=== PATIENT | female | born 1970 | race Caucasian/White ===

== ENCOUNTER 2020-03-29 08:38 | Inpatient (IN) | payer OTHER, SELFPAY ==
--- NOTE | 2020-03-23 08:54 | EKG12_ITS ---
Test Reason : PREOP Blood Pressure : / mmHG Vent. Rate : 054 BPM Atrial Rate : 054 BPM P-R Int : 142 ms QRS Dur : 082 ms QT Int : 458 ms P-R-T Axes : 041 026 022 degrees QTc Int : 434 ms Sinus bradycardia Otherwise normal ECG Confirmed by STEPH CORBETT, GIRMA ([id number]), newspaper editor managing CASSY JOSEPH ([id number]) on 03/24/2020 12:40:24 PM Referred By: EMELY Confirmed By:GIRMA CHOI MD
[2020-03-24 11:22] LABS: Hematocrit 42.6 % (37-47); Hemoglobin 13.8 g/dL (12.0-15.0); Mean Corp Hgb Conc 32.4 g/dL (32-36); Mean Corpuscular Hgb 29.1 pg (27.0-32.0); Mean Corpuscular Volume 89.9 fL (81-99); Mean Platelet Vol. 10.3 fl (6.2-12.0); Platelet Count 284 K/mm3 (150-450); RBC Distribution Width CV 12.1 % (11.6-14.6); Red Blood Count 4.74 M/mm3 (4.2-5.4); White Blood Count 7.4 K/mm3 (4.4-11.0)
[2020-03-24 11:31] LABS: Partial Thromboplast Time 25.2 Seconds (24.1-36.2)
[2020-03-24 11:55] LABS: ALB/GLOB Ratio 0.9 RATIO (0.9-2.4); AST(SGOT) 17 U/L (15-37); Alanine Aminotransfer ALT/SGPT 23 U/L (13-56); Albumin, Serum 3.5 g/dL (3.2-5.0); Alkaline Phosphatase 79 U/L (45-117); Anion Gap 6 (5-15); BUN 15 mg/dL (7-18); BUN/Creat Ratio 14.9 RATIO (10-20); Calcium,Total 9.3 mg/dL (8.5-10.1); Chloride 106 mmol/L (98-107); Creatinine, Serum 1.01 mg/dL (0.55-1.02); EST Glomerular Filtration Rate 62 mL/min (>60); Est Glom Filt Rate - Afr Amer 75 mL/min (>60); Globulin 3.8 g/dL (2.2-4.2); Glucose 90 mg/dL (74-106); Potassium 3.9 mmol/L (3.5-5.1); Protein, Total 7.3 g/dL (6.4-8.2); Sodium Level 136 mmol/L (136-145)
--- NOTE | 2020-03-28 19:16 | HP.PCM_ITS ---
History and Physical Date of Admission: 03/29/20 Surgical History and Physical Licha Kelley, a 50 year old female 2 0 0 0 2, presents for CAMERON/BSO on March 29, 2020 at 10:30. -- Large Pelvic Mass -- Pelvic Mass which began CT Scan & US at [facility]. Licha claims it started gradually and has been present August/2019. It occurs all the time. It is located in the lower abdomen. Licha characterizes the quality pressure. Severity is moderate and not improving; Additional comments are: Referred by Ellyn Uriostegui HEALTH AND PHYSICAL EDUCATION PROFESSOR.; Additional comments are: CT and u/s shows possible fibroids vs ovarian cystic mass 13 cm sized; minimal sxs; thick EM lining.; Additional comments are: uncertain if on right or left.; Additional comments are: CA-125 normal and EMBx benign; u/s shows likely large endometrioma vs simple cystadenoma or cyst. MEDICATIONS HISTORY: Patient is also takin. oxybutynin chloride ER 10 mg tablet,extended release 24 hr, daily 2. JESSICA (28) 3 mg-0.02 mg tablet, One pill by mouth once a day ALLERGIES: No Known Drug Allergies Infections - Chicken pox Illnesses - none Accidents - None Hospitalizations - Childbirth and see surgery overactive bladder; Review of Systems: GENERAL - Denies fever, or chills SKIN - Denies skin changes EYES - Denies visual changes EARS - Denies difficulty hearing NOSE - Denies nasal congestion or bleeding MOUTH - Denies sore throat or difficulty swallowing NECK - Denies pain or swelling RESPIRATORY - Denies shortness of breath or wheezing CARDIOVASCULAR - Denies palpitations or chest pain GASTROINTESTINAL - Denies nausea, vomiting, diarrhea, constipation GENITOURINARY - Denies dysuria, frequency of urination, incontinence of urine MUSCULOSKELETAL - Denies joint or muscle pain NEUROLOGICAL - Denies localized numbness or weakness PSYCHIATRIC - Denies depression or anxiety ENDOCRINE - Denies heat or cold intolerance, weight loss or gain HEMATO-IMMUNOLOGIC - Denies excessive bleeding with cuts SOCIAL HISTORY: Alcohol Use - drinks occasionally Smoking - denies smoking Diet - balanced Diet Lifestyle - low to moderate stress lifestyle Exercise - minimal Seat Belt Use - always Employer - [employer] Job Description - [employer] Illicit Drug Use - denies use of street drugs Sexual Activity - Residence - lives with Hours Worked - 40 hours per week Spouse-Sig Other Name - AGUSTÍN Spouse-Sig Other Occupation - Banker Children Name(s) - 2 children Control - Control Pills FAMILY HISTORY: MENSTRUAL HISTORY: LMP Known?- Approximate-Month Known Amount/Duration - 5 to 7 days, Regularity - Regular, Frequency - monthly days, LMP - 02/22/20 PAST PREGNANCIES: Total Pregnancies - 2; Full Term Pregnancies - 2; Premature - 0; Abortions, Malika yanna - 0; Abortions, Spontaneous - 0; Ectopics - 0; Multiple Births - 0; Living Children - 2 SURGICAL HISTORY: 1. Jaw- TMJ age 17 PHYSICAL EXAM BP- 120/84 Sitting, Right arm, regular cuff Temp- 98.1 Weight- 211.11147 lbs Height- 69.00 inch BMI:31.31 CONSTITUTIONAL - NAD, well nourished, and well developed ABDOMEN - moveable mass to the umbilicus NEUROLOGICAL - Cranial nerves II-XII grossly intact PSYCHIATRIC - A and O to time, place, person, mood and affect DETAILED PELVIC EXAM External Genital Vagina - non-tender without lesions Urethra/Urethral Meatus - non-tender Bladder - non-tender Vagina - vaginal mustafa are pink and moist without loss of rugae and no evidence of atropy Cervix - without cervical motion tenderness and has normal size and features without evident lesions Uterus - enlarged uterus 15 wks and greater Adnexa - clear without masses or tenderness ASSESSMENT/PLAN: 1. Other Intra-abdominal And Pelvic Swelling, Mass And Lump EMBx and CA-125 bening. U/S with likely endometrioma vs cystadenoma; fibroids present. Given this is likely benign process will proceed with CAMERON/BSO. Discussed RBAs and all questions answered.
[2020-03-29] VITALS (11 sets, daily range): BP systolic 113–128; BP diastolic 62–83; PULSE 55–77; RESP 14–18; TEMP 36.1–36.8; O2SAT 98–100; BMI 31.1; BMI 31.2
--- NOTE | 2020-03-29 | OV_PTH ---
PATIENT: MIGUEL A MEZA LOC: MS3 U#:[id number] AGE/SX: 50/F ROOM: CA315 RE03/29/[address]: Dr. Asa Hawley MD : 1970 BED: 1 DIS: 03/30/2020 SPEC #: [id number] RECD: 03/29/20 10:59 STATUS: GRUPO REHelder #: [id number] NIDHI: 03/29/20 00:[address]: Asa Hawley DEPT: SURGICAL PATHOLOGY RECD BY: Apple Simon ENTERED: 03/29/20 11:41 SP TYPE: OVARY OTHR DR: Noelle Uriostegui PA-C Tissues: A - Left ovary B - Uterus, NOS Procedures: Frozen Section (charge) Frozen Section Add'l ([facility]) Surgery Specimen Level V HEADER OPERATION: Total abdominal hysterectomy, bilateral salpingo-oophorectomy PRE-OP DIAGNOSIS: Intra-abdominal and pelvic swelling, mass TISSUE SUBMITTED: A - Left ovary, frozen section, B - Uterus, cervix, right ovary and bilateral fallopian tubes FROZEN SECTION DIAGNOSIS A. Left ovary oophorectomy: Benign fibrous walled cyst, inflamed. Focal changes suggestive of dermoid cyst. AM:kvng 03/29/20 MICROSCOPIC DIAGNOSIS A. Left ovary and fallopian tube, salpingo-oophorectomy: Mature cystic teratoma (dermoid cyst). Fallopian tube with no pathologic change. B. Uterus, hysterectomy: Cervix - chronic inflammation. Endometrium - inactive endometrium. Myometrium - Focal simple cystic hyperplasia without atypia. Right ovary - corpora albicantia. Right fallopian tube - no pathologic change. AM:kvng 03/31/20 MICROSCOPIC DESCRIPTION Slides are reviewed. GROSS DESCRIPTION A - Received fresh for frozen section consultation labeled with the patient's name is a specimen designated left ovary. The specimen consists of a smooth, glistening cystic ovary measuring 19.5 x 15 x 12 cm and weighing 975 gm. The external surface is inked. No excrescences are identified on the external surface. Sections reveal a large amount of abbasi clear to hazy fluid. The inner cyst wall lining is also smooth and glistening. The cyst wall ranges in thickness from 0.5 to 0.6 cm. No papillary projections or excrescences on the inside of the cyst wall are identified. Coding Quality Coordinator sections of the cyst wall are submitted for froze section consultation in two blocks (cassettes 1 & 2). Attached to the external surface is a fallopian tube segment measuring 3 cm in length and 0.5 cm in average diameter. Additional residential sales representative sections of ovary and fallopian tube are submitted in cassettes 3-5. Note, fallopian tube is represented in cassette 3. B - Received in fixative is one container labeled with the patient's name and designated uterus. The specimen consists of a uterus with attached cervix measuring 9 x 6 x 5 cm and weighing 102 gm. The ectocervix is unremarkable. The cervical os is oval in contour. The endocervical canal measures 3 cm in length and is grossly unremarkable. The triangular endometrial cavity measures 4.5 x 3.5 cm. The endometrium is light abbasi, velvety and glistening and free of mass lesions. The myometrium is distorted with multiple spherical, rubbery nodules representing leiomyomas and ranging in size from 0.5 to 2.5 cm in greatest dimension. The myometrium averages 2 cm in thickness. The masses are subserosal, intramural and submucosal in location. A detached ovary with adjacent fallopian tube is present. The ovary is light abbasi-yellow in color and measures 2 x 2 x 1 cm. Serial sections do not reveal mass lesions. The adjacent fallopian tube measures 5 cm in length and 0.5 cm in average diameter. No tubo-ovarian adhesions are identified. Coding Quality Coordinator sections are submitted as follows: 1 - anterior cervix, 2??posterior cervix, 3 & 4 - anterior uterine wall, 5 & 6 - posterior myometrial wall, 7 - largest myometrial mass, 8 - second largest myometrial mass, 9 - smaller myometrial masses, 10 - ovary and fallopian tube. / AM:kvng 03/30/20 TC:3 CPT: 21531 x2, 64204, 86787
--- NOTE | 2020-03-29 | OV_PTH ---
PATIENT: MIGUEL A MEZA LOC: MS3 U#:[id number] AGE/SX: 50/F ROOM: KY315 RE03/29/[address]: Dr. Asa Hawley MD : 1970 BED: 1 DIS: 03/30/2020 SPEC #: [id number] RECD: 03/29/20 10:59 STATUS: GRUPO REHelder #: [id number] NIDHI: 03/29/20 00:[address]: Asa Hawley DEPT: SURGICAL PATHOLOGY RECD BY: Apple Simon ENTERED: 03/29/20 11:41 SP TYPE: OVARY OTHR DR: Noelle Uriostegui PA-C Tissues: A - Left ovary B - Uterus, NOS Procedures: Frozen Section (charge) Frozen Section Add'l ([facility]) Surgery Specimen Level V HEADER OPERATION: Total abdominal hysterectomy, bilateral salpingo-oophorectomy PRE-OP DIAGNOSIS: Intra-abdominal and pelvic swelling, mass TISSUE SUBMITTED: A - Left ovary, frozen section, B - Uterus, cervix, right ovary and bilateral fallopian tubes FROZEN SECTION DIAGNOSIS A. Left ovary oophorectomy: Benign fibrous walled cyst, inflamed. Focal changes suggestive of dermoid cyst. AM:kvng 03/29/20 MICROSCOPIC DIAGNOSIS A. Left ovary and fallopian tube, salpingo-oophorectomy: Mature cystic teratoma (dermoid cyst). Fallopian tube with no pathologic change. B. Uterus, hysterectomy: Cervix - chronic inflammation. Endometrium - inactive with focal simple cystic hyperplasia without atypia. Myometrium - Leiomyomas. Focal adenomyosis. Right ovary - corpora albicantia. Right fallopian tube - no pathologic change. AM:kvgn 03/31/20 AM:kvng 04/01/20 MICROSCOPIC DESCRIPTION Slides are reviewed. GROSS DESCRIPTION A - Received fresh for frozen section consultation labeled with the patient's name is a specimen designated left ovary. The specimen consists of a smooth, glistening cystic ovary measuring 19.5 x 15 x 12 cm and weighing 975 gm. The external surface is inked. No excrescences are identified on the external surface. Sections reveal a large amount of abbasi clear to hazy fluid. The inner cyst wall lining is also smooth and glistening. The cyst wall ranges in thickness from 0.5 to 0.6 cm. No papillary projections or excrescences on the inside of the cyst wall are identified. Travel Registered Nurse Nicu sections of the cyst wall are submitted for froze section consultation in two blocks (cassettes 1 & 2). Attached to the external surface is a fallopian tube segment measuring 3 cm in length and 0.5 cm in average diameter. Additional field support representative sections of ovary and fallopian tube are submitted in cassettes 3-5. Note, fallopian tube is represented in cassette 3. B - Received in fixative is one container labeled with the patient's name and designated uterus. The specimen consists of a uterus with attached cervix measuring 9 x 6 x 5 cm and weighing 102 gm. The ectocervix is unremarkable. The cervical os is oval in contour. The endocervical canal measures 3 cm in length and is grossly unremarkable. The triangular endometrial cavity measures 4.5 x 3.5 cm. The endometrium is light abbasi, velvety and glistening and free of mass lesions. The myometrium is distorted with multiple spherical, rubbery nodules representing leiomyomas and ranging in size from 0.5 to 2.5 cm in greatest dimension. The myometrium averages 2 cm in thickness. The masses are subserosal, intramural and submucosal in location. A detached ovary with adjacent fallopian tube is present. The ovary is light abbasi-yellow in color and measures 2 x 2 x 1 cm. Serial sections do not reveal mass lesions. The adjacent fallopian tube measures 5 cm in length and 0.5 cm in average diameter. No tubo-ovarian adhesions are identified. Travel Registered Nurse Nicu sections are submitted as follows: 1 - anterior cervix, 2??posterior cervix, 3 & 4 - anterior uterine wall, 5 & 6 - posterior myometrial wall, 7 - largest myometrial mass, 8 - second largest myometrial mass, 9 - smaller myometrial masses, 10 - ovary and fallopian tube. / AM:kvng 03/30/20 TC:3 CPT: 14346 x2, 78348, 96658
[2020-03-29 09:01] LABS: Internal QC Validated? YES +Cl - CLEAR BKGD; Pregnancy, Urine Negative Negative
[2020-03-29] MEDS: Lactated Ringers 1,000 ML 75 ML IV (09:21)
[2020-03-29] MEDS: Cefotetan 2 GM in 0.9% NS 100 ML IV (10:24)
--- NOTE | 2020-03-29 12:22 | OP.PCM_ITS ---
Report of Operation Date of Procedure: 03/29/20 Pre-Operative Diagnosis: Large Pelvic Mass Post-Operative Diagnosis: Large Left Pelvic Mass; Ovarian Cyst Surgery/Procedure Performed:: Total Abdominal Hysterectomy and Bilateral Salpingo-Oophorectomy Description of Surgical Findings:: 8 cm uterus with normal right fallopian tube and ovary. Approximately a 10 to 12 cm cystic left ovary removed intact. Frozen section diagnosis showed likely serous cystadenoma, possible small portion of cyst dermoid. recyclable products sorter: Greg Hamilton Type of Anesthesia:: General - Endotracheal Anesthesiologist: Anthony Jones Specimen's removed: Uterus with bilateral fallopian tubes and ovaries Drains: Boyd to straight drain Estimated Blood Loss (mL): 100 cc Fluids Replaced: Crystalloid Description of Procedure: Surgeon: Asa Hawley MD, FACOG Indications: This is a 50-year-old patient who his been having problems with pelvic pressure with a large left pelvic mass noted on CT scan. CA-125 and endometrial biopsies were benign. Given this the patient desires that we proceed with the above procedure. She has been counseled regarding the risk and indications of this procedure including the possibility of bleeding, infection, and injury to surrounding structures such as bowel bladder. She understands as well that if both ovaries are removed that she will need to be on hormone replacement therapy for an indefinite period of time. All questions were answered. Procedure: Patient was taken to the operating room where after induction of general anesthesia she was prepped and draped in the usual sterile fashion. A Boyd catheter was placed. The abdomen was entered through a Pfannenstiel incision and peritoneal cavity was entered bluntly. The left large cystic ovary was delivered with the use of a Kiwi vacuum suction and base of the ovary and tube was ligated with 0 Vicryl suture. Osvaldo retractor was placed. Round ligaments were identified and ligated with 0 Vicryl suture. Infundibulopelvic ligaments were ligated x2. A bladder flap was developed and progressive bites were then taken down on either side of the uterine cervix ligating each pedicle with 0 Vicryl suture. Final bites across the vaginal cuff incorporated the uterosacral ligaments into the vaginal cuff using 0 Vicryl suture and multiple [id number] sutures were placed across the vaginal cuff. Vaginal cuff and pelvic sidewall pedicles were oversewn where necessary to achieve hemostasis. Pelvis was copiously irrigated removing all clot. Osvaldo retractor was removed and rectus abdominis muscles were reapproximated in the midline with interrupted 0 Vicryl suture. 0 PDS strata fix was used to close the fascia in a running fashion and subcutaneous tissue was copiously irrigated with saline solution before closing with 3-0 Vicryl suture. 3-0 Monocryl suture was then used in running fashion to reapproximate skin edges area and Steri-Strips and a Mepilex dressing placed across the incision. Patient tolerated the procedure well was taken to recovery room in satisfactory condition; sponge instrument and needle counts were all reportedly correct. Estimated blood loss for the case was 100 cc. Cefotan g IV was given prior to beginning the operative procedure. There were no apparent complications of the surgery. Specimen to pathology was uterus and bilateral fallopian tubes and ovaries. Grafts/Implants Used: None - Complications None - Admit VTE Documentation VTE Present on Admission: Yes VTE Mechan Device Prophylaxis: SCD's VTE Pharm Prophylaxis ordered?: Yes
--- NOTE | 2020-03-29 12:29 | DCINST_ITS ---
Discharge Diet: No Restrictions Discharge Activity: Return to Normal Activity - do what you feel comfortable, but do not over do it. You may climb stairs, just use caution and hold the railing., May Not Drive - for a few days or while taking narcotic pain medications., May Shower, May Take a Tub Bath May resume sexual activity in: 6 weeks - nothing in the vagina. Lifting Restrictions: 25 pounds for 6 weeks. Call your doctor if your incision/area has: Continuous Slow Oozing, Sudden Increased Bleeding, Increased Pain/ Swelling, Increased Redness, Foul Smelling Discharge Call your doctor if you observe: Fever of 101 or Higher, Inability to urinate, Inability to have a bowel movement, Using more than one pad per hour, - - Some vaginal bleeding may be noted for up to 4-8 weeks. Cleanse incision/area with: - - Let the soapy water run over your incision, rinse and pat dry. Additional Dressing/Incision Instructions:: The white strips (Steri Strips) on your incision will fall off on their own. Allergies/Adverse Reactions: Allergies No Known Allergies Allergy (Verified 03/22/20 09:19) Medications to take at Discharge Ethinyl Estradiol/Drospirenone [Amanda 28 Tablet] 1 ea PO DAILY 03/22/20 Oxybutynin [Ditropan] 5 mg PO DAILY 03/22/20 Docusate Sodium [Colace] 100 mg PO BID PRN PRN #60 cap 03/29/20 Estradiol 2 mg PO DAILY #100 tab 03/29/20 Oxycodone [Oxyir] 5 mg PO Q6H PRN PRN 7 Days #20 tablet 03/29/20 The following prescriptions were given: Docusate Sodium [Colace] 100 mg PO BID PRN PRN #60 cap PRN Reason: Constipation Transmission Status: Pending to [facility] Estradiol 2 mg PO DAILY #100 tab Transmission Status: Pending to [facility] Oxycodone [Oxyir] 5 mg PO Q6H PRN PRN 7 Days #20 tablet PRN Reason: Pain Score 6-10/10 Transmission Status: Sent to [facility] Primary Care Physician: Noelle Uriostegui PA-C [Primary Care Provider] - Test Results: Test results from this visit will be discussed in further detail at your follow- up appointment, if applicable. Please Follow Up With: Asa Hawley MD - [phone] When: in 2 weeks, please call to make an appointment.
[2020-03-29] MEDS: Dextrose 5%-Lactated Ringers 1,000 ML 150 ML IV (14:22)
[2020-03-29] MEDS: HYDROmorphone 1 MG/ML Syringe IV ×2 (15:09→17:38)
[2020-03-29] MEDS: 0.9% Saline Lock 10 ML Syringe IV ×2 (15:10→17:31)
[2020-03-29] MEDS: Ketorolac 30 MG/ML Syringe IV ×2 (17:30→23:07)
[2020-03-29] MEDS: oxyCODONE 5 MG Tablet PO (21:45)
[2020-03-30 02:30] VITALS: BP 122/71; PULSE 52; RESP 16; TEMP 36.7; O2SAT 100
[2020-03-30] MEDS: Ketorolac 30 MG/ML Syringe IV (05:57)
[2020-03-30] MEDS: 0.9% Saline Lock 10 ML Syringe IV (05:58)
[2020-03-30 06:12] LABS: Hematocrit 34.8 % (37-47); Hemoglobin 11.3 g/dL (12.0-15.0); Mean Corp Hgb Conc 32.5 g/dL (32-36); Mean Corpuscular Hgb 29.4 pg (27.0-32.0); Mean Corpuscular Volume 90.4 fL (81-99); Mean Platelet Vol. 10.4 fl (6.2-12.0); Platelet Count 217 K/mm3 (150-450); RBC Distribution Width CV 12.1 % (11.6-14.6); RBC Distribution Width SD 39.9 fl (35.1-43.9); Red Blood Count 3.85 M/mm3 (4.2-5.4); White Blood Count 10.5 K/mm3 (4.4-11.0)
[2020-03-30 06:44] LABS: EST Glomerular Filtration Rate 71 mL/min (>60); Est Glom Filt Rate - Afr Amer 86 mL/min (>60); Estimated Creatinine Clearance 75.44 ml/min
[2020-03-30 06:55] VITALS: O2SAT 99
--- NOTE | 2020-03-30 08:28 | PN.OBGYN_ITS ---
Subjective: Patient without complaints. Tolerating diet well. Denies flatus. Minimal vaginal bleeding noted. Pain well controlled. Objective: Wound is clean, dry, intact. Good urine output. Hemoglobin and creatinine okay. - Physical Exam Vitals/I&O's: Vital Signs Temp Pulse Resp BP Pulse Ox 98.1 F 52 L 16 122/71 H 99 03/30/20 02:30 03/30/20 02:30 03/30/20 02:30 03/30/20 02:30 03/30/20 06:55 Oxygen Delivery Method Room Air Weight: 211 lb 3.245 oz Body Mass Index (BMI) 31.2 Intake and Output for Last 24 Hours 03/28/20 03/29/20 03/30/20 23:59 23:59 23:59 Intake Total 2466.25 / 2466.25 800 / 800 Output Total 2150 / 2150 1250 / 1250 Balance 316.25 / 316.25 -450 / -450 Laboratory Results 03/29/20 08:40: Urine Test Negative 03/30/20 05:15: WBC 10.5, RBC 3.85 L, Hgb 11.3 L, Hct 34.8 L, MCV 90.4, MCH 29.4, MCHC 32.5, RDW Std Deviation 39.9, RDW Coeff of Cole 12.1, Plt Count 217, MPV 10.4 03/30/20 05:15: Creatinine 0.90, Estim Creat Clear Calc 75.44, Est GFR (MDRD) Af Amer 86, Est GFR (MDRD) Non-Af 71 Current Medications Acetaminophen (Tylenol) 1,000 mg PO Q8H PRN PRN PRN Reason: Pain Score 1-3/10 or Fever Docusate Sodium (Colace) 100 mg PO BID PRN PRN PRN Reason: Constipation Enoxaparin Sodium (Lovenox) 40 mg SC DAILY FITO Estrogens Conjugated (Premarin) 1.25 mg PO DAILY FTIO Hydromorphone HCl (Dilaudid Inj) 0.5 - 1.5 mg IV Q3H PRN PRN PRN Reason: Pain Score 4-10/10 Last Admin: 03/29/20 17:38 Dose: 1.5 mg Documented by: Dextrose/Lactated Ringer's () 1,000 mls @ 150 mls/hr IV .Q6H40M [facility] Last Admin: 03/30/20 04:19 Dose: Not Given Documented by: Sodium Chloride () 250 mls @ 15 mls/hr IV .[id number] PRN PRN Reason: Saline Flush Sodium Chloride () 250 mls @ 15 mls/hr IV .[id number] PRN PRN Reason: Additional IVPB Infusion Ketorolac Tromethamine (Toradol (Bkc)) 30 mg IV Q6H [facility] Stop: 04/03/20 18:01 Last Admin: 03/30/20 05:57 Dose: 30 mg Documented by: Ondansetron HCl (Zofran) 4 mg IV Q4H PRN PRN PRN Reason: NAUSEA Oxycodone HCl (Oxyir) 5 - 10 mg PO Q4H PRN PRN PRN Reason: Pain Score 4-10/10 Last Admin: 03/29/20 21:45 Dose: 5 mg Documented by: Simethicone (Mylicon) 80 mg PO [facility] Last Admin: 03/29/20 21:51 Dose: 80 mg Documented by: Sodium Chloride () 10 - 40 ml IV UD PRN PRN Reason: SALINE FLUSH Last Admin: 03/30/20 05:58 Dose: 10 ml Documented by: Medical Necessity - Tobacco Use Smoking Status: Never smoker Tobacco Use: Non-smoker Assessment/Plan Doing well postoperative day #1 status post total abdominal hysterectomy and bilateral salpingo-oophorectomy. Will discharge to home later today if tolerating diet well with positive flatus and able to void on own with Boyd catheter is discontinued.
[2020-03-30 08:30] VITALS: BP 112/65; PULSE 54; RESP 16; TEMP 36.7; O2SAT 100
[2020-03-30] MEDS: Estrogens,Conj. 1.25 MG Tablet PO (09:18)
--- NOTE | 2020-03-30 11:34 | PHA.DC.MC ---
Pharmacy Service has performed discharge medication reconciliation and counseling for this patient. The patient was counseled on the following discharge medications and changes in medications for homegoing were reviewed. 1. OXYCODONE 2. ESTRADIOL 3. DOCUSATE The Reason for Use, instructions for use, and potential side effects were reviewed for all new medications. The patient's questions regarding all of their medications were answered. The patient was able to verbally demonstrate an understanding of their discharge medications. Home Medications Ethinyl Estradiol/Drospirenone [Amanda 28 Tablet] 1 ea PO DAILY 03/22/20 Oxybutynin [Ditropan] 5 mg PO DAILY 03/22/20 Docusate Sodium [Colace] 100 mg PO BID PRN PRN #60 cap 03/29/20 Estradiol 2 mg PO DAILY #100 tab 03/29/20 Oxycodone [Oxyir] 5 mg PO Q6H PRN PRN 7 Days #20 tab 03/29/20 The patient's discharge medication list was reviewed for discrepancies and discrepancies were resolved.
[2020-03-30] MEDS: oxyCODONE 5 MG Tablet PO ×2 (12:06→16:56)
[2020-03-30 14:30] VITALS: BP 134/77; PULSE 60; RESP 18; TEMP 36.7; O2SAT 100
--- NOTE | 2020-03-30 14:38 | CASEMGMT ---
BLAINE CM Note: patient plans to discharge this evening. Intro role of CM to patient. Patient states she was independent, no DME and plans to return home. She has assist at home if needed. No concerns. Diagnosis: CAMERON BSO Insurance: [facility] Preferred Pharmacy: [facility] in [place], but had scripts filled for dc @ [facility]. PCP: KRISSY Escalante Specialist: Dr. Chandan GONZÁLES PLAN: Home no needs identified. Kassi MASSEY RN ACM
[2020-03-30] MEDS: Acetaminophen 500 MG Tablet 1000 MG PO (16:56)
[2020-03-30] MEDS: Docusate Sodium 100 MG Capsule PO (16:56)
== END 2020-03-30 17:50 | disposition home or self-care (01) | DRG 743 ==
LOC: ACINP 08:43 → MS3 12:52
PROVIDERS: Anesthesiology; Admitting Provider Obstetrics & Gynecology; PCP Family Medicine; Referring Provider Obstetrics & Gynecology; Visit Provider Obstetrics & Gynecology
PROC: 0UT90ZZ Resection of Uterus, Open Approach (ICD-10-PCS; CPT 58150; principal; 2020-03-29 10:10)
DX: D27.1 Benign neoplasm of left ovary (principal); N32.81 Overactive bladder
CPT/HCPCS: 36415; 80053; 81025; 82565; 85027; 85610; 85730; 86850; 86900; 86901; 87635; 88305; 88307; 88331; 88332; 93005; 99251; C9803; J7120; A4216; G0463; J2405; U0003

== ENCOUNTER 2021-08-26 07:59 | Day surgery (SDC) | payer BC, SELFPAY ==
--- NOTE | 2021-08-26 08:04 | EKG12_ITS ---
Test Reason : PRE SURGICAL Blood Pressure : / mmHG Vent. Rate : 054 BPM Atrial Rate : 054 BPM P-R Int : 160 ms QRS Dur : 084 ms QT Int : 452 ms P-R-T Axes : 046 039 030 degrees QTc Int : 428 ms Sinus bradycardia Otherwise normal ECG When compared with ECG of 23-MAR-2020 09:03, No significant change was found Confirmed by MICHELLE CORBETT, DARRION ([id number]), web editor CASSY JOSEPH ([id number]) on 08/30/2021 11:26:09 AM Referred By: Jaswant Love Confirmed By:DARRION MARTINEZ MD
[2021-08-26 08:19] VITALS: BP 120/76; PULSE 56; RESP 16; TEMP 36.4; O2SAT 100; BMI 29.3
[2021-08-26] MEDS: Lactated Ringers 1,000 ML 30 ML IV (08:43)
--- NOTE | 2021-08-26 10:30 | PCM.HP.STD ---
HPI - General HPI Narrative MIGUEL A MEZA, is a 51 F who presents for placement of a tension-free vaginal sling she has a history of stress incontinence by exam and history. She also has a slight overactive bladder managed with medication we talked at the risk of management of a sling the risk of sling erosion infection pain problems with intercourse revision, surgery revisions. She signed the consent form [facility] Medical History (Updated 08/26/21 @ 10:[address] Jaswant Love MD) Alcohol use Bladder disease Non-smoker Wears glasses Home Medications oxybutynin chloride 5 mg PO DAILY 03/22/20 [History Last Taken Unknown] estradiol 2 mg PO DAILY #100 tab 03/29/20 [Rx Last Taken Unknown] ciprofloxacin HCl 500 mg PO BID #10 tab 08/26/21 [Rx Last Taken Unknown] docusate sodium [Colace] 100 mg PO DAILY #10 cap 08/26/21 [Rx Last Taken Unknown] oxycodone-acetaminophen 1 tab PO Q6H PRN 7 Days #10 tab 08/26/21 [Rx Last Taken Unknown] Allergy/AdvReac Type Severity Reaction Status Date / Time No Known Allergies Allergy Verified 08/26/21 08:10 Surgical History (Updated 08/19/21 @ 10:06 by Brandy Clinton) Hx of hysterectomy Hx of oral surgery Hx of oral surgery Social History Smoking Status: Never smoker Vital Signs Vital Signs Vital Signs: 08/26/21 08:19 Temperature 97.5 F L Temperature Source Temporal Pulse Rate 56 L Respiratory Rate 16 Respiratory Pattern Normal Blood Pressure 120/76 Blood Pressure Mean 90 Blood Pressure Source Monitor Blood Pressure Position Semi-Fowlers Blood Pressure Location Left Arm Pulse Ox 100 Oxygen Delivery Method Room Air Weight Weight: 90 kg Body Mass Index (BMI) 29.3
[2021-08-26] MEDS: Cefazolin 2 GM in 0.9% Normal Saline 100 ML IV (10:31)
--- NOTE | 2021-08-26 10:31 | PCM.DC ---
Discharge Instructions Diet Discharge Diet: No restrictions Activity Discharge Activity: Return to Normal Activity and May Not Drive (while taking narcotic pain medications.) Dressing / Incision Call your doctor if you observe: Fever of 101 or Higher Follow Up Care Please Follow Up With: Jaswant Love MD When: Call [phone] for an appointment Test Results: Test results from this visit will be discussed in further detail at your follow-up appointment, if applicable. Discharge Plan Admission Primary Reason for Your Visit: TVT sling Attending Provider: Jaswant Love Primary Care Provider: Kay Wright Instructions Patient Instructions: Urethral Sling Surg Discharge Orders/Prescriptions Prescriptions: New oxycodone-acetaminophen 5-325 mg tablet 1 tab PO Q6H PRN (Reason: pain) 7 Days Qty: 10 RF: 0 docusate sodium [Colace] 100 mg capsule 100 mg PO DAILY Qty: 10 RF: 0 ciprofloxacin HCl 500 mg tablet 500 mg PO BID Qty: 10 RF: 0 Continued oxybutynin chloride 5 MG tablet 5 mg PO DAILY RF: 0 estradiol 2 MG tablet 2 mg PO DAILY Qty: 100 RF: 4 Referrals / Follow Up: Jaswant Love MD [STAFF PHYSICIAN] - Kay Wright PA [Primary Care Provider] - Disposition Disposition (needs filled in before D/C Order can be placed): Home, Self Care
[2021-08-26] MEDS: Lidocaine 1% /Epi 1:100 (50ml) 50 ML VIAL (10:48)
[2021-08-26] MEDS: Ondansetron 4 MG/2 ML Vial IV (11:24)
--- NOTE | 2021-08-26 11:28 | OP.PCM_ITS ---
Report of Operation Date of Procedure: 08/26/21 Pre-Operative Diagnosis: Stress incontinence Post-Operative Diagnosis: Same Surgery/Procedure Performed:: TVT sling Description of Surgical Findings:: 51-year-old female who is seen in the preoperative area consultation regarding stress incontinence and evaluation she had visible stress incontinence with a full bladder and Valsalva she leaks urine quite easily she is very active and she likes to workout less to do heavy lifting. She wishes to have something done to improve her stress incontinence on exam she only had a very minor cystocele fairly large capacity bladder fairly good bladder capacity and a very hypermobile urethra we discussed options of management for her stress incontinence including observation sling material with a toggle of sling versus tension-free vaginal sling with mesh we talked about the advantages and disadvantages of using a mesh and after discussing this with the patient she agreed to proceed with a tension-free vaginal sling and hoping of improving her bladder control she understands we will do our very best to try to put the sling incorrectly with enough tension but if we put the sling and too tight she may not be able to urinate if it has been too loose and may only help a little bit with her bladder control. Patient was taken back to the operating room, she was placed in dorsolithotomy position, the patient underwent a vaginal prep and also lower abdominal prep. We placed her in dorsolithotomy position went into the bladder with a 21 Amharic rigid cystourethroscope she had a large capacious bladder anatomy in the bladder normal trigone, she had a slight cystocele but did not need repaired, we then placed the catheter in the bladder and marked out the midline incision and below the urethra infiltrated with lidocaine 1% with epinephrine and then made a small incision the midline urethra and the vaginal vault about 1-1/2 cm in length and then dissected inferiorly on the right and left side to create the space for the sling and then the sling was put in for starting by passing the trocar top-down on the patient's left side after the trocar was passed through a small stab incision in the lower abdomen we then inspected the bladder with a 30 and 70 degree lens there is no injury to the urethra or the bladder after the trocar was placed I then pulled the one-sided sling up to make sure is nice and flat we then dissected to the other side and then bladder was drained again with a catheter and then we passed a trocar down top-down on the right side and then grabbed the end of the sling we checked the inside of the bladder make sure there is no perforation damage to the urethra or bladder and after this was done then both ends of the sling was put up in the most difficult part of the the case was tensioning the patient sling I placed a straight snap in the sling and tension the sling up until that the snap was resting right on the urethra but no tension on the urethra I then cut the end of the slings off and released the sleeves but when I push in the bladder she still had a lot of urine just coming out with stress incontinence unfortunately cephalic the sling was not tight enough so I then tightened it up a little bit more both the left side after tightening the stent down then pushing the bladder was though still a little bit of Valsalva leakage but at this point I felt like tightening even more than this would lead to retention of urine because of the sling was up on the urethra. So after doing his minor adjustment to the sling I then cut the excess sling length off both sides I then closed the midline vaginal incision with a running 3 oh V- Loc and then closed with subcuticular stitches on the abdomen with 4 oh V-Loc hopefully the sling is tightened up that will help her with her bladder control but hopefully not too tight that she can not urinate we will do a voiding trial here in the postoperative setting she is not able to urinate should over the catheter for another voiding trial I spoke to her regarding the findings otherwise with minimal blood loss and the sling was put in well the question is how tight the sling needed to be to allow her to urinate but still help with bladder control difficult sling placement given the judgment how tight the sling had to be. Surgeon: uvaldo Type of Anesthesia: General Drains: none Admit VTE Documentation VTE Present on Admission: No VTE Pharm Prophylaxis ordered?: No
[2021-08-26 11:40] VITALS: BP 111/63; BP 120/76; PULSE 88; RESP 16; TEMP 36.9; O2SAT 16
[2021-08-26 11:45] VITALS: BP 115/65; BP 120/76; PULSE 85; RESP 16; O2SAT 97
[2021-08-26] MEDS: Lactated Ringers 1,000 ML 75 ML IV (11:46)
[2021-08-26 12:00] VITALS: BP 102/62; BP 120/76; PULSE 72; RESP 16; TEMP 36.8; O2SAT 98
[2021-08-26 12:44] VITALS: BP 120/76
== END 2021-08-26 23:59 | disposition home or self-care (01) ==
LOC: SDC 08:00 → AC 08:01
PROVIDERS: Referring Provider Urology; Visit Provider Urology
PROC: 0TJB8ZZ Inspection of Bladder, Via Natural or Artificial Opening Endoscopic (ICD-10-PCS; CPT 57288; principal; 2021-08-26 09:50)
DX: N39.3 Stress incontinence (female) (male) (principal); N32.81 Overactive bladder; R00.1 Bradycardia, unspecified; Z79.899 Other long term (current) drug therapy
CPT/HCPCS: 57288; 00940; 93005; J7120; C1771; J2405